=== PATIENT | female | born 1965 | race African-American/Black ===

== ENCOUNTER 2017-03-01 14:37 | Emergency (ER) | payer OTHER ==
[~2017-03-01 14:37] MED LIST: FIORICET 325 MG1 TAB PO; LISINOPRIL20 M1 PO; LISINOPRIL20 MG PO; PROTONIX20 M1 PO
--- NOTE | 2017-03-01 15:27 | ED GENERAL ADULT ---
History of Present Illness General Chief Complaint: Abdominal Pain/Flank Pain Stated Complaint: ABD PAIN ? CYST Source: patient Exam Limitations: no limitations Vital Signs & Intake/Output Vital Signs & Intake/Output Vital Signs Date Time Temp Pulse Resp B/P B/P Pulse O2 O2 Flow FiO2 Mean Ox Delivery Rate 03/01 1946 97.5 80 18 173/88 98 Room Air 03/01 1750 97.0 81 20 171/86 99 Room Air 03/01 1727 98 Room Air 03/01 1452 98.1 77 22 138/84 99 Allergies Coded Allergies: adhesive tape (Mild, RASH 03/01/17) almond (Mild, PAIN/NAUSEA/DIZZINESS 03/01/17) Reconcile Medications Lisinopril 20 MG TABLET 1 TAB PO DAILY HTN (Reported) Meloxicam (Mobic) 15 MG TABLET 1 TAB PO DAILY PAIN Oxycodone HCl/Acetaminophen (Percocet 5-325 MG Tablet) 5 MG-325 MG TABLET 1 TAB PO BID PAIN Pantoprazole Sodium (Protonix) 20 MG TABLET.DR 1 TAB PO DAILY ACID REFLUX ( Reported) Triage Note: PER PT ABD PAIN PERIODICALLY X 1 WEEK, DENIES NV OR FEVER SL PAIN WITH URINATION PT HX OF HX 2006 Triage Nurses Notes Reviewed? yes Onset: Abrupt Duration: day(s): Timing: recent history HPI: 03/01/17 4 pm 51-year-old female presents to the emergency department complaining of right lower quadrant abdominal pain. According to the patient she's had intermittent lower abdominal pain over the past several days. She denies vomiting or diarrhea, chest pain or shortness of breath. The onset of the symptoms was abrupt, the duration has been several days, the severity is significant as her symptoms required her to come to the emergency department for care. Past History Travel History Traveled to [place] past 21 day No Medical History Any Pertinent Medical History? 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 No Review of Systems Review of Systems Constitutional: Denies: fever. EENTM: Reports: no symptoms. Respiratory: Denies: short of breath. Cardiovascular: Denies: chest pain. GI: Reports: abdominal pain. Genitourinary: Reports: no symptoms. Musculoskeletal: Reports: no symptoms. Skin: Denies: rash. Neurological/Psychological: Reports: no symptoms. Hematologic/Endocrine: Reports: no symptoms. Physical Exam Physical Exam General Appearance: anxious, mild distress Head: atraumatic, normal appearance Eyes: Bilateral: normal appearance, PERRL, EOMI. Ears, Nose, Throat: normal pharynx, normal ENT inspection Neck: normal inspection, supple Respiratory: normal breath sounds, chest non-tender, no respiratory distress Cardiovascular: regular rate/rhythm Peripheral Pulses: 4+ radial (R), 4+ radial (L) Gastrointestinal: soft, RIGHT LOWER QUADRANT TENDERNESS, NO REBOUND OR GUARDING Back: normal range of motion Extremities: no edema Neurologic/Psych: no motor/sensory deficits, awake, alert, oriented x 3 Skin: intact, normal color, warm/dry Core Measures ACS in differential dx? No CVA/TIA Diagnosis: No Severe Sepsis Present: No Septic Shock Present: No Progress Differential Diagnoses I considered the following diagnoses in my evaluation of the patient: [Ovarian cyst, ovarian torsion, appendicitis, diverticulitis, cervicitis, UTI] Plan of Care: Orders Procedure Date/time Status CULTURE,URINE 03/01 1613 Active CHLAMYDIA-GC DNA PROBE 03/01 1613 Active URINALYSIS 03/01 1613 Complete COMPREHENSIVE METABOLIC PANEL 03/01 1613 Complete CBC WITHOUT DIFFERENTIAL 03/01 1613 Complete Laboratory Tests 03/01/17 1745: Urine Color YEL, Urine Clarity CLEAR, Urine pH 6.5, Ur Specific [place] <= 1.005 , Urine Protein NEG, Urine Ketones NEG, Urine Nitrite NEG, Urine Bilirubin NEG, Urine Urobilinogen 0.2, Ur Leukocyte Esterase NEG, Ur Microscopic EXAM NOT REQUIRED, Urine Hemoglobin NEG, Urine Glucose NEG 03/01/17 1625: Anion Gap 12, Estimated GFR > 60, BUN/Creatinine Ratio 13.8, Glucose 80, Calcium 9.5, Total Bilirubin 0.8, AST 27, ALT 34, Alkaline Phosphatase 73, Total Protein 7.5, Albumin 4.4, Globulin 3.1, Albumin/Globulin Ratio 1.4, CBC w Diff NO MAN DIFF REQ, RBC 5.63 H, MCV 77.8 L, MCH 25.4 L, RDW 14.2, MPV 10.3, Gran % 64.7 , Lymphocytes % 23.6, Monocytes % 7.7, Eosinophils % 3.2, Basophils % 0.8, Absolute Granulocytes 4.7, Absolute Lymphocytes 1.7, Absolute Monocytes 0.6, Absolute Eosinophils 0.2, Absolute Basophils 0.1, PUBS MCHC 32.7 L Microbiology 03/01 1745 URINE ROUT: GC DNA Probe - RECD 03/01 1745 URINE ROUT: Chlamydia DNA Probe (JARRET) - RECD 03/01 1745 URINE ROUT: Urine Culture - RECD Initial ED EKG: none Departure Departure Disposition: STILL A PATIENT Condition: Stable Clinical Impression Primary Impression: Abdominal pain Referrals: KEITH CRUZ,JANNET Sparks (PCP/Family) Departure Forms: Customer Survey General Discharge Information Prescriptions: Current Visit Scripts Oxycodone HCl/Acetaminophen (Percocet 5-325 MG Tablet) 1 TAB PO BID #10 TAB Meloxicam (Mobic) 1 TAB PO DAILY #10 TAB Comments Ultrasound reveals ovarian cyst with free fluid. No evidence of torsion. Labs unremarkable. Critical Care Note Critical Care Note Critical Care Time: non-applicable Comments: She was treated with IV fluids and IV Toradol.
[2017-03-01 16:54] LABS: ABSOLUTE BASOPHIL COUNT 0.1 /CUMM (0.0-0.2); ABSOLUTE EOSINOPHIL COUNT 0.2 /CUMM (0.0-0.7); ABSOLUTE GRANULOCYTE CT 4.7 /CUMM (1.4-6.5); ABSOLUTE LYMPH COUNT 1.7 /CUMM (1.2-3.4); ABSOLUTE MONOCYTE COUNT 0.6 /CUMM (0.10-0.60); BASOPHIL % 0.8 % (0.0-2.0); EOSINOPHIL % 3.2 % (0-5); GRANULOCYTE % 64.7 % (42.2-75.2); HEMATOCRIT 43.8 % (37-47); MEAN CORPUSCULAR HGB 25.4 PG (27.0-31.0); MEAN CORPUSCULAR HGB CONC 32.7 G/DL (33.0-37.0); MEAN CORPUSCULAR VOLUME 77.8 FL (81.0-99.0); MEAN PLATELET VOLUME 10.3 FL (7.4-10.4); PLATELET COUNT 221 /CUMM (130-400); RBC DISTRIBUTION WIDTH 14.2 % (11.5-14.5); RED BLOOD CELL CT 5.63 /CUMM (4.20-5.40); WHITE BLOOD CELL COUNT 7.3 /CUMM (4.8-10.8)
--- NOTE | 2017-03-01 18:05 | CT SCAN REPORT ---
EXAMINATION: CT ABDOMEN AND PELVIS WITH CONTRAST CLINICAL INFORMATION: Pelvic pain COMPARISON: None TECHNIQUE: Multidetector volumetric imaging was performed of the abdomen and pelvis before and after the IV administration of 94 mL of Optiray 320 intravenous contrast. Coronal and sagittal reformatted images were generated. DLP: 1049 mGy-cm FINDINGS: LUNG BASES: There are minor dependent changes within the lung bases. There is some platelike atelectasis or scar in the right middle lobe peripherally. The visualized heart and pericardium appear unremarkable. LIVER, GALLBLADDER, AND BILIARY TREE: The liver is normal in size, shape, and attenuation. No focal hepatic lesion or biliary ductal dilatation is present. The gallbladder is unremarkable with no evidence of radiopaque gallstones, gallbladder wall thickening, or obvious pericholecystic inflammatory changes. PANCREAS: Unremarkable. SPLEEN: Unremarkable. ADRENAL GLANDS: Unremarkable. KIDNEYS AND URETERS: The kidneys are normal in size, shape, and attenuation. No hydronephrosis, hydroureter, or calculi seen. No perinephric stranding. BLADDER: Unremarkable. GASTROINTESTINAL TRACT: There is scattered stool within the colon loops of small bowel appear normal in caliber. A normal appendix is visualized. The proximal gastric wall may be under distended versus thickened. A gastritis is not excluded. ABDOMINAL WALL: No significant hernia is appreciated. LYMPH NODES: Normal. VASCULAR: Unremarkable. PELVIC VISCERA: There appears to have been prior hysterectomy. The left ovary is slightly more full than the right. There is a small amount of fluid along the left paracolic gutter. OSSEOUS STRUCTURES: There are 5 nonrib-bearing lumbar type vertebral bodies. Vertebral body height is maintained. No significant degenerative change. No evidence of spondylolysis or scoliosis. Mild degenerative changes of the SI joints bilaterally. No acute osseous abnormalities are visualized. IMPRESSION: There is a small of fluid in the left paracolic gutter, nonspecific. The left ovary is slightly larger than the right. If there is any clinical concern for ovarian torsion, correlation with pelvic ultrasound is suggested. There is evidence of prior hysterectomy. Under distention versus wall thickening within the proximal stomach. A gastritis is not excluded. Otherwise no convincing acute intra-abdominal or intrapelvic abnormality is visualized.
--- NOTE | 2017-03-01 19:43 | ULTRASOUND REPORT ---
EXAMINATION: ULTRASOUND PELVIC, COMPLETE CLINICAL INFORMATION: Pelvic pain. COMPARISON: None. TECHNIQUE: Transabdominal and transvaginal imaging was performed. Transvaginal imaging was performed for further evaluation of the endometrium and adnexa. FINDINGS: The patient is status post hysterectomy. Both ovaries are of normal size and echogenicity. The right measures 3.2 x 2.5 x 3.0 cm for a volume of 12.4 cc. This measurement includes an approximately 2 cm cyst. The left measures 3.5 x 3.1 x 3.6 cm for a volume of 20.5 cc. This measurement includes an approximately 1.7 cm cyst. There is a moderate amount of pelvic free fluid. IMPRESSION: Status post hysterectomy. Bilateral ovarian cysts. No evidence for ovarian torsion. Moderate amount of pelvic free fluid.
[2017-03-01 19:46] VITALS: BP 173/88
[2017-03-01] MEDS ORDERED: PERCOCET 5-3251 EACH PO (19:55)
[2017-03-01] MEDS ORDERED: MOBIC15 M1 PO (19:56)
== END 2017-03-01 20:21 ==
LOC: ERH 14:37
PROVIDERS: Emergency Medicine
DX: N83.201 Unspecified ovarian cyst, right side (principal)
CPT/HCPCS: 74177; 81003; 87086; 87491; 87591; 96361; 96374; J1885

== ENCOUNTER 2017-11-20 23:43 | Emergency (ER) | payer OTHER ==
[~2017-11-20] VITALS: Ht 167.6 cm; Wt 113.4 kg
[~2017-11-20 23:43] MED LIST changes: +MOBIC15 M1 PO; +PERCOCET 5-3251 EACH PO
[2017-11-21 00:44] LABS: ABSOLUTE BASOPHIL COUNT 0.1 /CUMM (0.0-0.2); ABSOLUTE EOSINOPHIL COUNT 0.4 /CUMM (0.0-0.7); ABSOLUTE GRANULOCYTE CT 5.1 /CUMM (1.4-6.5); ABSOLUTE LYMPH COUNT 2.1 /CUMM (1.2-3.4); ABSOLUTE MONOCYTE COUNT 0.5 /CUMM (0.10-0.60); BASOPHIL % 0.6 % (0.0-2.0); EOSINOPHIL % 4.5 % (0-5); GRANULOCYTE % 62.1 % (42.2-75.2); HEMATOCRIT 40.9 % (37-47); MEAN CORPUSCULAR HGB 25.3 PG (27.0-31.0); MEAN CORPUSCULAR HGB CONC 32.8 G/DL (33.0-37.0); MEAN CORPUSCULAR VOLUME 77.1 FL (81.0-99.0); MEAN PLATELET VOLUME 9.4 FL (7.4-10.4); PLATELET COUNT 282 /CUMM (130-400); RBC DISTRIBUTION WIDTH 14.1 % (11.5-14.5); RED BLOOD CELL CT 5.31 /CUMM (4.20-5.40); WHITE BLOOD CELL COUNT 8.2 /CUMM (4.8-10.8)
--- NOTE | 2017-11-21 00:57 | ED HEADACHE COMPLAINT ---
History of Present Illness General Chief Complaint: General Adult Stated Complaint: PER PT " BY PRESSURE IS HIGH" Source: patient, family, old records Exam Limitations: no limitations Vital Signs & Intake/Output Vital Signs & Intake/Output Vital Signs Date Time Temp Pulse Resp B/P B/P Pulse O2 O2 Flow FiO2 Mean Ox Delivery Rate 11/21 0145 164/100 11/21 0123 66 172/98 11/21 0115 Room Air 11/21 0105 102 194/102 11/21 0104 67 194/102 11/21 0022 182/98 11/21 0017 96.1 68 18 198/105 97 Room Air Allergies Coded Allergies: adhesive tape (Mild, RASH 03/01/17) almond (Mild, PAIN/NAUSEA/DIZZINESS 03/01/17) Reconcile Medications Lisinopril 20 MG TABLET 1 TAB PO DAILY HTN (Reported) Meloxicam (Mobic) 15 MG TABLET 1 TAB PO DAILY PAIN Oxycodone HCl/Acetaminophen (Percocet 5-325 MG Tablet) 5 MG-325 MG TABLET 1 TAB PO BID PAIN Pantoprazole Sodium (Protonix) 20 MG TABLET.DR 1 TAB PO DAILY ACID REFLUX ( Reported) Triage Note: TRIAGE: PATIENT TO ER FROM HOME REPORTING HTN AND MIGRAINE SINCE APPROX 8:30PM. TAKES LISINOPRIL. AUTO BP: 198/105, MANUAL IN PROGRESS. "SLIGHTLY NAUSEOUS FROM THE MIGRAINE, WHEN I HAVE HIGH BP I GET A MIGRAINE." REPORTS HTN SINCE 10:45 THIS AM, "THOUGHT IT WAS GETTING BETTER BECAUSE THE MIGRAINE SUBSIDED FOR A WHILE." DENIES ANY CP. PATIENT REPORTS "I DO HAVE OVARIAN CYSTS AND CALLED OUT FROM WORK FOR IT YESTERDAY." Triage Nurses Notes Reviewed? yes Onset: Evening Duration: hour(s):, better, constant Timing: recent history Quality/Severity: moderate, throbbing Modifying Factors: Improves With: medication. LMP (ages 10-50): unknown : No Patient currently breastfeeds: No HPI: Prior to admission patient complains of throbbing headache usually occurring when blood pressure is elevated. It is improved with jyyg-kuz-mileoor migraine medication. She denies fever chills nausea vomiting diarrhea abdominal pain chest pain shortness of breath dysuria rash bleeding. Past History Travel History Traveled to [place] past 21 day No Medical History Any Pertinent Medical History? 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 No Review of Systems Review of Systems Constitutional: Reports: no symptoms. Eyes: Reports: no symptoms. Ears, Nose, Throat, Mouth: Reports: no symptoms. Respiratory: Reports: no symptoms. Cardiovascular: Reports: no symptoms. Gastrointestinal/Abdominal: Reports: no symptoms. Genitourinary: Reports: no symptoms. Musculoskeletal: Reports: no symptoms. Skin: Reports: no symptoms. Neurological/Psychological: Reports: see HPI, headache. Hematologic/Endocrine: Reports: no symptoms. Endocrine: Reports: no symptoms. Immunologic/Allergic: Reports: no symptoms. All Other Systems: Reviewed and Negative Physical Exam Physical Exam General Appearance: well developed/nourished, alert, awake, anxious, mild distress, obese Head: atraumatic, normal appearance Eyes: Bilateral: normal appearance, PERRL, EOMI. Ears, Nose, Throat: normal pharynx, normal ENT inspection, hearing grossly normal Neck: normal inspection, supple, full range of motion, trachea midline Respiratory: normal breath sounds, chest non-tender, no respiratory distress, quiet respiration, lungs clear Cardiovascular: regular rate/rhythm, normal peripheral pulses, norml femoral pulses equa Gastrointestinal: normal bowel sounds, soft, non-tender, no organomegaly Back: normal inspection, normal range of motion, no vertebral tenderness Extremities: normal inspection, normal capillary refill, normal range of motion, no edema Psychiatric: awake, alert, oriented x 3 Cranial Nerves: normal hearing, normal speech, PERRL Coordination/Gait: normal finger to nose, normal gait Motor/Sensory: no motor/sensory deficits Reflexes: 2+: bicep (R), bicep (L). Skin: intact, normal color, warm/dry Lymphatic: no anterior cervical charisse Core Measures Sepsis Present: No Sepsis Focused Exam Completed? No Progress Differential Diagnosis: cluster FITZGERALD, migraine FITZGERALD, musculoskeletal pain Plan of Care: Orders Procedure Date/time Status TSH REFLEX 11/21 22 Complete TROPONIN LEVEL 11/21 22 Complete MAGNESIUM 11/21 22 Complete COMPREHENSIVE METABOLIC PANEL 11/21 22 Complete CBC WITHOUT DIFFERENTIAL 11/21 22 Complete EKG 11/21 22 Active Laboratory Tests 11/21/17 0037: Anion Gap 9, Estimated GFR > 60, BUN/Creatinine Ratio 20.0, Glucose 91, Calcium 9.8, Magnesium 1.9, Total Bilirubin 0.3, AST 32, ALT 44, Alkaline Phosphatase 78 , Troponin I < 0.01, Total Protein 7.4, Albumin 4.4, Globulin 3.0, Albumin/ Globulin Ratio 1.5, TSH &T3 &Free T4 Intrp 1.620, CBC w Diff NO MAN DIFF REQ, RBC 5.31, MCV 77.1 L, MCH 25.3 L, MCHC 32.8 L, RDW 14.1, MPV 9.4, Gran % 62.1 , Lymphocytes % 26.3, Monocytes % 6.5, Eosinophils % 4.5, Basophils % 0.6, Absolute Granulocytes 5.1, Absolute Lymphocytes 2.1, Absolute Monocytes 0.5, Absolute Eosinophils 0.4, Absolute Basophils 0.1 Departure Departure Time of Disposition: 212 Disposition: HOME OR SELF CARE Condition: Stable Clinical Impression Primary Impression: Hypertension Secondary Impressions: Headache Referrals: Janina CRUZ,Meera Sparks (PCP/Family) Additional Instructions: Increase Lisinopril to 30 mg daily. Departure Forms: Customer Survey General Discharge Information RELEASE- WORK days. May Return to Work today: No Number of days excused from work: 1 (Including today's visit) Prescriptions: Current Visit Scripts Lisinopril 1 TAB PO DAILY #30 TAB Critical Care Note Critical Care Note Critical Care Time: 30-74 min (35)
[2017-11-21 01:45] VITALS: BP 164/100
[2017-11-21] MEDS ORDERED: LISINOPRIL10 M1 PO (02:16)
== END 2017-11-21 02:26 ==
LOC: ERH 23:43
PROVIDERS: Emergency Medicine
DX: I10 Essential (primary) hypertension (principal)
CPT/HCPCS: 93005; 93010; 96374; 96375; 99291; J0131